=== PATIENT | male | born 1950 | race Caucasian/White ===

== ENCOUNTER 2018-02-28 06:57 | Emergency (ER) | payer OTHER ==
[~2018-02-28] VITALS: Ht 180.3 cm; Wt 80.0 kg
[2018-02-28 07:01] VITALS: BP 132/80; PULSE 108; RESP 16; TEMP 98; O2SAT 98
[2018-02-28] MEDS ORDERED: HYDR12.57 PO (07:12)
[2018-02-28] MEDS ORDERED: ATOR20TA15 PO (07:12)
[2018-02-28] MEDS ORDERED: METF500T PO (07:12)
[2018-02-28] MEDS ORDERED: VITA1000 PO (07:12)
[2018-02-28] MEDS ORDERED: OMEP20TA93 PO (07:12)
[2018-02-28] MEDS ORDERED: LISI40TA PO (07:12)
[2018-02-28] MEDS ORDERED: LEVO25TA4 PO (07:12)
[2018-02-28 07:13] VITALS: BP 140/76; PULSE 103; RESP 16; O2SAT 98
[2018-02-28] MEDS ORDERED: ONDANSETRON ODT 4 MG TAB PO ONE (07:45)
[2018-02-28] MEDS ORDERED: SODIUM CHLOR 0.9% 1000 ML INJ 1,000 ML IV ONE (07:45)
--- NOTE | 2018-02-28 07:52 | PD ---
HPI Chief Complaint: GI Complaint Time Seen by Provider: 07:27 Travel History International Travel<30 days: No Contact w/Intl Traveler<30days: No Traveled to known affect area: No History of Present Illness HPI Patient is a 67 year old male who comes in complaining of cough with nausea, vomiting, and diarrhea. He says he started feeling just "ill" for the past few days, but these symptoms started two days ago. He says he has been taking Mucinex, but he thinks this is causing his diarrhea. He denies any abdominal pain. He denies seeing any blood in his stool. His last episode of vomiting was late last night, he was able to drink water since then without vomiting. His last episode of diarrhea was this morning. He says he thinks he has had a fever, but has not taken his temperature. He denies chest pain, but occasionally feels short of breath. He denies any recent antibiotic use. Severity is mild to moderate. PFSH Past Medical History Arthritis: Yes Anxiety: Yes High Cholesterol: Yes Diabetes: Yes Patient Takes Glucophage: Yes GERD: Yes Hiatal Hernia: Yes Hypertension: Yes Myocardial Infarction: Yes Seizures: Yes (as a child) Thyroid Disease: Yes Influenza Vaccination: Yes Past Surgical History Body Medical Devices: pacer defib-Awesome.me Pacemaker: Yes Tonsillectomy: Yes Social History Alcohol Use: Yes (occasional) Tobacco Use: No Substance Use: Yes (marijuana-not abuse) Allergies-Medications (Allergen,Severity, Reaction): Coded Allergies: Iodine and Iodide Containing Produc (Verified Allergy, Severe, vomiting and hives, 02/28/18) Reported Meds & Prescriptions Reported Meds & Active Scripts Active Zithromax Z-Brad (Azithromycin) 250 Mg Dspk 250 Mg PO DIRECTED 500 MG (2 tabs) day 1, then 1 tab days 2-5. Reported Vitamin D-1000 (Cholecalciferol) 1,000 Unit Tab 1,000 Units PO DAILY Omeprazole 20 Mg Tab 20 Mg PO DAILY Levothyroxine (Levothyroxine Sodium) 25 Mcg Tab 25 Mcg PO DAILY Hydrochlorothiazide 12.5 Mg Cap 12.5 Mg PO DAILY Atorvastatin (Atorvastatin Calcium) 20 Mg Tab Unknown Dose PO HS Metformin (Metformin HCl) 500 Mg Tab 500 Mg PO BIDPC Lisinopril 40 Mg Tab Unknown Dose PO DAILY Review of Systems Except as stated in HPI: all other systems reviewed are Neg General / Constitutional: Positive: Fever, No: Chills HENT: No: Headaches, Lightheadedness Cardiovascular: No: Chest Pain or Discomfort Respiratory: Positive: Cough Gastrointestinal: Positive: Nausea, Vomiting, Diarrhea, No: Abdominal Pain Musculoskeletal: No: Myalgias, Edema Skin: No Rash, No Change in Pigmentation Neurologic: No: Weakness, Dizziness Physical Exam Narrative GENERAL: Awake and alert, in no acute distress. SKIN: Focused skin assessment warm/dry. No wounds or signs of infection. HEAD: Atraumatic. Normocephalic. EYES: Pupils equal and round. No scleral icterus. No injection or drainage. ENT:Mucous membranes pink and moist. NECK: Trachea midline. No JVD. CARDIOVASCULAR: Regular rate and rhythm. No murmur appreciated. RESPIRATORY: No accessory muscle use. Clear to auscultation. Breath sounds equal bilaterally. GASTROINTESTINAL: Abdomen soft, non-tender, nondistended. MUSCULOSKELETAL: No obvious deformities. No clubbing. No cyanosis. No edema. NEUROLOGICAL: Awake and alert. No obvious cranial nerve deficits. Motor grossly within normal limits. Normal speech. PSYCHIATRIC: Appropriate mood and affect; insight and judgment normal. Data Data Last Documented VS Vital Signs Date Time Temp Pulse Resp B/P (MAP) Pulse Ox O2 Delivery O2 Flow Rate FiO2 02/28/18 11:02 02/28/18 07:13 103 16 98 Room Air 02/28/18 07:01 98.0 Orders Orders Iv Access Insert/Monitor (02/28/18 07:36) Complete Blood Count With Diff (02/28/18 07:36) Comprehensive Metabolic Panel (02/28/18 07:36) Chest, Pa & Lat (02/28/18 ) Urinalysis - C+S If Indicated (02/28/18 07:36) Sodium Chlor 0.9% 1000 Ml Inj (Ns 1000 M (02/28/18 07:45) Ondansetron Odt (Zofran Odt) (02/28/18 07:45) Ct Abd/Pel W/O Iv Contrast (02/28/18 ) Cath For Specimen (02/28/18 09:30) Ed Discharge Order (02/28/18 10:44) Labs Laboratory Tests Test 02/28/18 07:40 02/28/18 09:35 White Blood Count 18.2 TH/MM3 Red Blood Count 4.92 MIL/MM3 Hemoglobin 14.0 GM/DL Hematocrit 41.7 % Mean Corpuscular Volume 84.7 FL Mean Corpuscular Hemoglobin 28.4 PG Mean Corpuscular Hemoglobin Concent 33.5 % Red Cell Distribution Width 15.5 % Platelet Count 372 TH/MM3 Mean Platelet Volume 8.3 FL Neutrophils (%) (Auto) 82.7 % Lymphocytes (%) (Auto) 9.9 % Monocytes (%) (Auto) 6.9 % Eosinophils (%) (Auto) 0.3 % Basophils (%) (Auto) 0.2 % Neutrophils # (Auto) 15.0 TH/MM3 Lymphocytes # (Auto) 1.8 TH/MM3 Monocytes # (Auto) 1.3 TH/MM3 Eosinophils # (Auto) 0.1 TH/MM3 Basophils # (Auto) 0.0 TH/MM3 CBC Comment DIFF FINAL Differential Comment Blood Urea Nitrogen 17 MG/DL Creatinine 1.31 MG/DL Random Glucose 176 MG/DL Total Protein 8.6 GM/DL Albumin 3.9 GM/DL Calcium Level 9.0 MG/DL Alkaline Phosphatase 128 U/L Aspartate Amino Transf (AST/SGOT) 23 U/L Alanine Aminotransferase (ALT/SGPT) 13 U/L Total Bilirubin 1.4 MG/DL Sodium Level 135 MEQ/L Potassium Level 3.7 MEQ/L Chloride Level 100 MEQ/L Carbon Dioxide Level 20.7 MEQ/L Anion Gap 14 MEQ/L Estimat Glomerular Filtration Rate 54 ML/MIN Urine Color YELLOW Urine Turbidity CLEAR Urine pH 5.5 Urine Specific [place] 1.007 Urine Protein NEG mg/dL Urine Glucose (UA) TRACE mg/dL Urine Ketones 10 mg/dL Urine Occult Blood NEG Urine Nitrite NEG Urine Bilirubin NEG Urine Urobilinogen LESS THAN 2.0 MG/DL Urine Leukocyte Esterase NEG Urine RBC 1 /hpf Urine WBC 1 /hpf Urine Squamous Epithelial Cells <1 /hpf Urine Mucus FEW /lpf Microscopic Urinalysis Comment CULT NOT INDICATED MDM Medical Decision Making Medical Screen Exam Complete: Yes Emergency Medical Condition: Yes Differential Diagnosis Pneumonia versus bronchitis versus dehydration versus viral illness Narrative Course Patient is a 67-year-old male who comes in complaining of cough, vomiting and diarrhea. Exam shows abdomen to be soft and nontender, lungs are clear to auscultation. IV established, labs sent. Labs show a white blood cell count of 18.2. Chest x-ray performed shows no acute abnormalities. CT abdomen pelvis performed shows no acute abnormalities. Last 24 hours Impressions Chest X-Ray 02/28/18 0000 Signed Impressions: CONCLUSION: 1. No acute cardiopulmonary disease. 2. Sclerotic focus left proximal humerus likely bone island. Abdomen/Pelvis CT 02/28/18 0000 Signed Impressions: CONCLUSION: 1. Diverticulosis without diverticulitis. 2. Punctate bilateral nonobstructing renal calculi. 3. There appears to be a punctate gallstone. 4. Questionable bladder wall thickening. Patient given IV fluids, Zofran. He reports feeling better. He will be discharged with prescription for azithromycin for likely bronchitis. [facility] Advised return to the ED as needed for any worsening symptoms. Diagnosis Primary Impression: Bronchitis Additional Impression: Nausea & vomiting Qualified Codes: R11.2 - Nausea with vomiting, unspecified Patient Instructions: Acute Bronchitis (ED), Acute Nausea and Vomiting (ED), General Instructions Additional Instructions: Take all of your antibiotics. Drink plenty fluids. Follow-up with your doctor. Return to the ED as needed for any worsening symptoms. Scripts Azithromycin (Zithromax Z-Brad) 250 Mg Dspk 250 MG PO DIRECTED for Infection, #1 DSPK 0 Refills 500 MG (2 tabs) day 1, then 1 tab days 2-5. Prov: Radha Priest MD 02/28/18 Disposition: 01 DISCHARGE HOME Condition: Stable Radha Priest MD February 28, 2018 07:52
[2018-02-28 07:54] LABS: BASOPHIL % 0.2 % (0.0-2.0); EOSINOPHIL # 0.1 TH/MM3 (0-0.4); EOSINOPHIL % 0.3 % (0.0-4.0); HEMATOCRIT 41.7 % (39.0-51.0); LYMPH % 9.9 % (9.0-44.0); LYMPHOCYTE # 1.8 TH/MM3 (1.0-4.8); MEAN CELL VOLUME 84.7 FL (80.0-100.0); MEAN CORPUSCULAR HEMOGLOBIN 28.4 PG (27.0-34.0); MEAN CORPUSCULAR HGB CONC 33.5 % (32.0-36.0); MEAN PLATELET VOLUME 8.3 FL (7.0-11.0); MONO % 6.9 % (0.0-8.0); MONOCYTE # 1.3 TH/MM3 (0-0.9); NEUT % 82.7 % (16.0-70.0); PLATELET COUNT 372 TH/MM3 (150-450); RED BLOOD COUNT 4.92 MIL/MM3 (4.50-5.90); RED CELL DISTRIBUTION WIDTH 15.5 % (11.6-17.2); WHITE BLOOD COUNT 18.2 TH/MM3 (4.0-11.0)
--- NOTE | 2018-02-28 08:17 | RADRPT ---
EXAM DATE: 02/28/2018 8:07 AM EDT AGE/SEX: 67 years / Male INDICATIONS: Flu like symptoms. Productive cough and fever for two days. CLINICAL DATA: This is the patient's initial encounter. Patient reports that signs and symptoms have been present for 2 days and indicates a pain score of 0/10. MEDICAL/SURGICAL HISTORY: Diabetes mellitus type II. Hypertension. Pacemaker. COMPARISON: No prior [place] exams available for comparison. FINDINGS: PA and lateral views of the chest demonstrate the lungs to be symmetrically aerated without evidence of mass, infiltrate or effusion. Heart normal in size. Left-sided pacemaker/defibrillator with [address] leads. The cardiomediastinal contours are unremarkable. Osseous structures are intact. Sclerotic f ocus left proximal humerus, likely bone island. CONCLUSION: 1. No acute cardiopulmonary disease. 2. Sclerotic focus left proximal humerus likely bone island. Electronically signed by: Eyad Resendez MD 02/28/2018 8:16 AM EDT
[2018-02-28 08:19] LABS: ALKALINE PHOSPHATASE 128 U/L (45-117); TOTAL BILIRUBIN ADULT 1.4 MG/DL (0.2-1.0); TOTAL PROTEIN 8.6 GM/DL (6.4-8.2)
[2018-02-28 08:21] LABS: ALBUMIN 3.9 GM/DL (3.4-5.0); ALT (GPT) 13 U/L (12-78); AST (GOT) 23 U/L (15-37); BICARBONATE 20.7 MEQ/L (21.0-32.0); BLOOD UREA NITROGEN 17 MG/DL (7-18); CHLORIDE 100 MEQ/L (98-107); CREATININE 1.31 MG/DL (0.60-1.30); GLOMERULAR FILTRATION RATE 54 ML/MIN (>89); GLUCOSE,RANDOM 176 MG/DL (74-106); SODIUM (NA) 135 MEQ/L (136-145)
--- NOTE | 2018-02-28 09:22 | RADRPT ---
EXAM DATE: 02/28/2018 9:08 AM EDT AGE/SEX: 67 years / Male INDICATIONS: Generalized abdominal pain and vomiting. CLINICAL DATA: This is the patient's initial encounter. Patient reports that signs and symptoms have been present for 3 days and indicates a pain score of 3/10. MEDICAL/SURGICAL HISTORY: Hiatal hernia. Hypertension. Pacemaker. Hiatal hernia repair RADIATION DOSE: 9.96 CTDI (mGy) COMPARISON: No prior [place] exams available for comparison. TECHNIQUE: Multiple contiguous axial images were obtained through the abdomen. Images were obtained using multiple row detector helical technique. Using dose reduction techniques, radiation dose was ke pt as low as reasonably achievable to obtain optimal diagnostic quality images. FINDINGS: Lower Lungs: The visualized lower lungs are clear. There is however an 11 x 7 mm nodule right lower l obe laterally. A few other minimal scattered densities in the right lower lobe. Punctate gallstone. Liver: The liver has a homogeneous density without space-occupying lesion. There is no dilation of th e biliary tree. Spleen: Homogeneous density without enlargement. Pancreas: Unremarkable without mass or calcification. Kidneys: Normal in size and shape. No evidence of mass or hydronephrosis. A 2 to 3 mm calculus super ior pole left kidney. 2 mm calculus right mid kidney. Adrenal Glands: Unremarkable. Aorta: The aorta and proximal iliac vessels are grossly unremarkable without aneurysmal dilation. Bowel/Mesentery: There is diverticulosis of the descending and sigmoid colon. No diverticulitis. Abdominal Wall: Intact. Retroperitoneum: No evidence of adenopathy in the retrocrural, para-aortic, or deep pelvic regions. Bladder: Contours are smooth. Questionable wall thickening measuring 4 mm. Reproductive Organs: No abnormal masses or calcifications seen. Inguinal: The inguinal region is unremarkable without evidence of adenopathy. Bony Structures: Unremarkable. CONCLUSION: 1. Diverticulosis without diverticulitis. 2. Punctate bilateral nonobstructing renal calculi. 3. There appears to be a punctate gallstone. 4. Questionable bladder wall thickening. Electronically signed by: Eyad Resendez MD 02/28/2018 9:21 AM EDT
[2018-02-28 09:59] LABS: BILIRUBIN, URINE NEG (NEG); BLOOD, URINE NEG (NEG); GLUCOSE,URINE TRACE mg/dL (NEG); KETONE, URINE 10 mg/dL (NEG); MUCUS URINE FEW /lpf (OCC); NITRITE,URINE NEG (NEG); PH, URINE 5.5 (5.0-8.5); SQUAMOUS EPITHELIAL CELL URINE <1 /hpf (0-5); URINE COLOR YELLOW (YELLW/STRAW); URINE LEUKOCYTE ESTERASE NEG (NEG)
[2018-02-28] MEDS ORDERED: ZITHTAB PO (10:44)
== END 2018-02-28 11:02 | disposition home or self-care (01) ==
LOC: NEPE 06:57
DX: J40 Bronchitis, not specified as acute or chronic (principal); R11.2 Nausea with vomiting, unspecified; E11.9 Type 2 diabetes mellitus without complications; I10 Essential (primary) hypertension; Z95.0 Presence of cardiac pacemaker
CPT/HCPCS: 71046; 74176; 80053; 81001; 85025; 96360; 99285; J7030; P9612